=== PATIENT | female | born 1945 | race Caucasian/White ===

== ENCOUNTER 2021-06-26 09:32 | Emergency (ER) | payer OTHER ==
[2021-06-26 09:44] VITALS: BP 165/90; PULSE 78; TEMP 98.3; BMI 23.3
[2021-06-26 10:46] LABS: EPI CELLS 2 /uL (0-25.1); HYALINE CASTS 0 /uL (0-3.1); PH,URINE 5.5 (5.0-8.0); URINE APPEARANCE CLEAR; URINE BILIRUBIN NEGATIVE (NEGATIVE); URINE COLOR DK YELLOW; URINE GLUCOSE (UA) 1+ (NEGATIVE); URINE KETONE NEGATIVE (NEGATIVE); URINE LEUK ESTERASE NEGATIVE (NEGATIVE); URINE NITRITE POSITIVE (NEGATIVE); URINE PROTEIN NEGATIVE (NEGATIVE); URINE RBC 1 /uL (0-23.9); URINE WBC 6 /uL (0-25.8)
[2021-06-26 17:20] LABS: URINE BACTERIA 3 /uL (0-1359)
== END 2021-06-26 11:25 | disposition home or self-care (01) ==
LOC: JERFT 09:32
DX: N39.0 Urinary tract infection, site not specified (principal)
CPT/HCPCS: 81003; 87086; 99283-25